=== PATIENT | female | born 1990 | race Caucasian/White ===

== ENCOUNTER → 2020-07-13 00:40 | Outpatient (CLI) | payer OTHER, SELFPAY ==
[2020-07-13 20:54] LABS: SARS-CoV-2 RNA PCR Negative
== END ==
PROVIDERS: PCP Internal Medicine; Visit Provider Internal Medicine Gastroenterology
DX: Z01.812 Encounter for preprocedural laboratory examination (principal); Z20.822 Contact with and (suspected) exposure to COVID-19
CPT/HCPCS: C9803; U0003; U0005

== ENCOUNTER 2020-07-17 04:32 | Day surgery (SDC) | payer OTHER, SELFPAY ==
[2020-07-05 11:14] VITALS: BMI 34.5
[2020-07-17 08:52] VITALS: BP 136/101; PULSE 104; TEMP 36.8; O2SAT 98; BMI 34.5
[2020-07-17] MEDS: LACTATED RINGERS 1,000 ML 150 ML IV CONT (09:16)
--- NOTE | 2020-07-17 09:18 | SUR.PREOP ---
pt is 29 and order for upreg, pt states she is currently menstruating and has not been sexually active in the last [address] javier aware, u preg not done.
--- NOTE | 2020-07-17 09:29 | WPDANESEPPF ---
Anes - Initial Pre Proc Eval Procedure: Operation Date: 07/17/20 10:00 Proposed Procedures p Esophagogastroduodenoscopy - Jaime Best MD Date/Time: 07/17/20 09:29 Surgeon: Jaime Best MD Pre Op Diagnosis: GERD Patient Data Age: 29 Gender: F Height: 5 ft 7 in Weight: 100.1 kg Last Vital Signs Temp 98.2 F 07/17/20 08:52 Pulse 104 H 07/17/20 08:52 BP 136/101 H 07/17/20 08:52 Pulse Ox 98 07/17/20 08:52 Allergies Allergy/AdvReac Type Severity Reaction Status Date / Time No Known Allergies Allergy Verified 07/17/20 08:50 Home Medications Medication Instructions Recorded Confirmed Type alprazolam 0.25 mg tablet 0.25 mg PO BID PRN 02/07/19 07/05/20 History citalopram 40 mg tablet 40 mg PO DAILY 02/07/19 07/17/20 History loratadine 10 mg tablet 10 mg PO DAILY 03/03/19 07/17/20 History prochlorperazine maleate 5 mg 5 mg PO DAILY PRN #14 tablet 03/03/19 07/17/20 Rx tablet esomeprazole magnesium 20 mg 20 mg PO DAILY #30 cap 05/31/20 07/17/20 Rx capsule,delayed release lisinopril 5 mg tablet 5 mg PO DAILY #30 tablet 06/10/20 07/17/20 Rx dextroamphetamine-amphetamine 10 mg PO DAILY 07/05/20 07/05/20 History [Adderall XR] Patient hx anesthesia problems: none Family hx anesthesia problems: none PMFSH Past Medical History Medical History (Updated 05/23/20 @ 14:38 by Etta Gallo NP) Anxiety Depression Hypertension Migraines Family History Family History (Updated 05/23/20 @ 13:10 by Sue Go) Grandparent Hypertension Family history of coronary artery disease Diabetes mellitus Family history of malignant neoplasm of male breast Mother Family history of diabetes mellitus in first degree relative Hypertension Father GERD (gastroesophageal reflux disease) Throat cancer Social History Social History Smoking status: Never smoker Second hand tobacco smoke exposure: Yes Alcohol intake: current Drinks per week: 2 Substance use: never Substance use type: does not use Living arrangements: with family Spiritual care concerns: No Anes - Eval Final PreProcedure Day of Procedure 07/17/20 09:29 Patient weight: overweight Heart: regular rate and rhythm Lungs: clear to auscultation Airway: Mallampati scale class II Neurological: alert and oriented Last oral intake: >/= 8 hours ASA classification: II Emergent: no Anesthetic plan: proceed Anesthesia type and monitoring: general GIVS and standard monitoring Informed Consent: The patient's anesthetic plan and its attendant risks and benefits were discussed with the patient/family/POA. Questions were solicited and answers provided to the satisfaction of the patient/family/POA.
--- NOTE | 2020-07-17 09:54 | PM.HPGS ---
History of Present Illness History of Present Illness Consent: Risks, benefits, and alternatives have been discussed and questions answered. Patient agrees to proceed with procedure. Chief complaint: GERD Narrative: Christin Cruz is a 29 year old female with gerd using nexium but never had egd, father also had brown's Review of Systems Constitutional: Constitutional: Denies headache(s) and Denies weakness Eyes: Eyes: Denies blurry vision ENT: Reports Normal hearing present, Denies headache(s) and Denies neck pain Cardiovascular: Cardiovascular: Denies chest pain and Denies dyspnea Respiratory: Respiratory: Denies dyspnea Gastrointestinal: Gastrointestinal: Reports no additional gastrointestinal complaints Genitourinary: Genitourinary: Denies dysuria Musculoskeletal: Musculoskeletal: Denies neck pain Integumentary/Breasts: Skin/Breast: Denies dry skin Neurologic: Reports Normal hearing present, Denies headache(s) and Denies weakness Psychiatric: Psychiatric: Denies anxiety Endocrine: Endocrine: Denies change in body appearance Hematologic/Lymphatic: Hematologic/Lymphatic: Denies easy bleeding Allergic/Immunologic: Allergic/Immunologic: Denies urticaria PMFSH Past Medical History Medical History (Updated 05/23/20 @ 14:38 by Etta Gallo NP) Anxiety Depression Hypertension Migraines Family History Family History (Updated 05/23/20 @ 13:10 by Sue Go) Grandparent Hypertension Family history of coronary artery disease Diabetes mellitus Family history of malignant neoplasm of male breast Mother Family history of diabetes mellitus in first degree relative Hypertension Father GERD (gastroesophageal reflux disease) Throat cancer Social History Social History Smoking status: Never smoker Second hand tobacco smoke exposure: Yes Alcohol intake: current Drinks per week: 2 Substance use: never Substance use type: does not use Living arrangements: with family Spiritual care concerns: No Meds Home Medications and Allergies Home Medications Medication Instructions Recorded Confirmed Type alprazolam 0.25 mg tablet 0.25 mg PO BID PRN 02/07/19 07/05/20 History citalopram 40 mg tablet 40 mg PO DAILY 02/07/19 07/17/20 History loratadine 10 mg tablet 10 mg PO DAILY 03/03/19 07/17/20 History prochlorperazine maleate 5 mg 5 mg PO DAILY PRN #14 tablet 03/03/19 07/17/20 Rx tablet esomeprazole magnesium 20 mg 20 mg PO DAILY #30 cap 05/31/20 07/17/20 Rx capsule,delayed release lisinopril 5 mg tablet 5 mg PO DAILY #30 tablet 06/10/20 07/17/20 Rx dextroamphetamine-amphetamine 10 mg PO DAILY 07/05/20 07/05/20 History [Adderall XR] Allergies Allergy/AdvReac Type Severity Reaction Status Date / Time No Known Allergies Allergy Verified 07/17/20 08:50 Vital Signs Vital Signs - 24 hr 07/17/20 08:52 Temperature 98.2 F Pulse Rate 104 H Blood Pressure 136/101 H Pulse Oximetry 98 Exam Const: General: comfortable and no acute distress HENMT: General nose exam: Normal nares present Eyes: General: appearance normal, both eyes and all related structures Neck: Neck: no JVD Resp: Auscultation: clear to auscultation bilaterally Cardio: Rate: regular rate Rhythm: regular rhythm GI: Inspection: non-distended GI Palp: Yes Soft to palpation Skin: General skin exam: normal color Neuro: General: gait normal Speech: normal speech Extrem: General: normal to inspection Psych: Mental Status: mental status grossly normal Assessment and Plan Assessment and plan (1) GERD (gastroesophageal reflux disease): Qualifiers: Esophagitis presence: without esophagitis Qualified Code(s): K21.9 - Gastro-esophageal reflux disease without esophagitis Code(s): K21.9 - Gastro-esophageal reflux disease without esophagitis Status: Acute Assessment and Plan: egd with bx
[2020-07-17] MEDS: BENZOCAINE (*SP) 60 ML SPRAY CAN (HURRICAINE) 1 SPRAY MUCOUS MEM (10:00)
[2020-07-17 10:10] VITALS: BP 144/109; PULSE 104; RESP 22; O2SAT 100
[2020-07-17 10:20] VITALS: BP 117/67; PULSE 95; RESP 20; O2SAT 100
[2020-07-17 10:30] VITALS: BP 124/76; PULSE 83; RESP 23; O2SAT 100
== END 2020-07-17 10:50 | disposition home or self-care (01) ==
PROVIDERS: PCP Internal Medicine; Visit Provider Internal Medicine Gastroenterology
PROC: 0DJ08ZZ Inspection of Upper Intestinal Tract, Via Natural or Artificial Opening Endoscopic (ICD-10-PCS; CPT 43235; principal; 2020-07-17 10:00)
DX: K29.70 Gastritis, unspecified, without bleeding (principal); K20.0 Eosinophilic esophagitis; K21.9 Gastro-esophageal reflux disease without esophagitis; Z83.79 Family history of other diseases of the digestive system; I10 Essential (primary) hypertension; F90.9 Attention-deficit hyperactivity disorder, unspecified type; F41.9 Anxiety disorder, unspecified; F32.9 Major depressive disorder, single episode, unspecified
CPT/HCPCS: 43239; 88305; C9803; J2704; J7120; U0003; U0005

== ENCOUNTER 2022-01-16 07:25 | Outpatient (CLI) | payer OTHER, SELFPAY ==
--- NOTE | 2022-02-02 16:13 | WPDHOMESLEEP ---
Sleep Study - Home Unattended Date of Study: 01/16/22 Ordering Provider: Surjit Santos DO Interpreting Provider: Nadia Rangel DO Home Sleep Study Type: Watch PAT Height: 1.68 m Weight: 95.254 kg Body Mass Index: 33.9 Neck Circumference (inches): 14.5 [place]: 8 Reason for Sleep Study Sleep-onset and sleep-maintenance insomnia, daytime hypersomnia, morning headaches Sleep History The patient is a 31 year old female with anxiety, depression, ADHD, hypertension, migraines and GERD that had a sleep study ordered by her primary care for evaluation of sleep apnea. She rarely awakens from sleep short of breath. She occasionally awakens at night with heartburn, belching or cough. She denies snoring. She rarely has trouble sleeping when she has. She denies waking up gasping for air throughout the night. She rarely has breathing problems at night observed by herself or others. She occasionally sweats excessively at night. She occasionally has heart palpitations or irregular heartbeats during the night. She frequently falls asleep during the day but rarely falls asleep while driving. She denies cataplexy. She frequently has trouble at school or work due to sleepiness. She rarely feels unable to move from waking up or falling asleep. He occasionally experiences vivid dreamlike scenes upon awakening or falling asleep. She denies feeling afraid of going to sleep. She rarely has nightmares. She occasionally remembers her dreams. She occasionally has thoughts racing through her mind. She rarely feels sad or depressed. She occasionally has anxiety. She occasionally has muscular tension. She frequently notices parts of her body jerk. She frequently kicks during the night. She occasionally has crawling and aching feelings in her legs but rarely has leg pain during the night. She rarely grinds her teeth during sleep but never awakens with morning jaw pain. She is occasionally bothered by pain during the day but rarely awakened by pain during the night. She constantly wakes up feeling stiff in the morning. She constantly wakes up with sore or achy muscles. She constantly wakes up with pain in the neck, spine and other joints. She goes to bed between 10:30 p.m. and 11:00 p.m. on both weekdays and weekends. It takes her 45-60 minutes to fall asleep. She wakes up at least 5 times throughout the night for unknown reasons. She is able to fall back asleep within 5-10 minutes. She wakes up at 6:00 a.m. on weekdays and at 7:00 a.m. on the weekends. She typically gets 4-5 hours of sleep per night. She will stay in bed for 30 minutes after waking up in the morning. She currently lives with her . She does not consume any caffeinated beverages within 2 hours of bedtime. She does not engage in physical exercise before bedtime. She will read before falling asleep. She will take naps in the afternoon or the evening but they are not refreshing. The patient consumes at least 3 caffeinated beverages per day. She denies tobacco, alcohol and recreational drug use. [facility] Past Medical History Medical History Anxiety Depression Hypertension Migraines Family History Family History Grandparent Hypertension Family history of coronary artery disease Diabetes mellitus Family history of malignant neoplasm of male breast Mother Family history of diabetes mellitus in first degree relative Hypertension Father GERD (gastroesophageal reflux disease) Throat cancer Social History Social History Smoking status: Never smoker Second hand tobacco smoke exposure: Yes Alcohol intake: current Drinks per week: 2 Alcohol use details: occasionally Substance use: never Substance use type: does not use Spiritual care concerns: No Medications Home Medi
[2022-02-02 16:21] VITALS: BMI 33.9
== END 2022-01-19 12:21 | disposition home or self-care (01) ==
LOC: ANHCSM 07:26
PROVIDERS: PCP Internal Medicine; Visit Provider Internal Medicine
DX: G47.19 Other hypersomnia (principal); G47.10 Hypersomnia, unspecified
CPT/HCPCS: 95800